=== PATIENT | male | born 1970 | race Caucasian/White ===

== ENCOUNTER 2017-11-06 04:18 | Inpatient (IN) | payer MEDICAID ==
[~2017-11-06] VITALS: Ht 162.6 cm; Wt 63.9 kg
[2017-11-06] VITALS (8 sets, daily range): BP systolic 112–131; BP diastolic 56–65; PULSE 94–108; RESP 16–20; TEMP 98.2–99.7; O2SAT 93–100
[~2017-11-06 04:18] MED LIST: LOTR30T TOP; Z.0.NO CURRENT MEDS
[2017-11-06] MEDS ORDERED: SODIUM CHLOR 0.9% 1000 ML INJ 1,000 ML IV SCH (04:31)
--- NOTE | 2017-11-06 04:42 | PD ---
HPI Chief Complaint: Abdominal Pain Time Seen by Provider: 04:31 Travel History International Travel<30 days: No Contact w/Intl Traveler<30days: No Traveled to known affect area: No History of Present Illness HPI 46-year-old male presents to the emergency department by private transportation the care of family for evaluation of abdominal pain since 1 AM. Patient states pain is severe. Patient states symptoms began around 1 AM with diarrhea and then developed abdominal pain and then vomiting. Patient does not report any chest pain but does say he feels short of breath. Patient denies any chronic medical conditions such as CAD hypertension dyslipidemia diabetes asthma COPD pancreatitis gastritis peptic ulcer disease biliary colic. Patient does admit to tobacco use. Patient takes no medications on a regular basis. Patient does not report hematemesis coffee-ground emesis melena hematochezia. No report of chest pain or referred neck jaw back shoulder or arm pain. No report of fever or chills. Patient is unable to identify exacerbating or alleviating factors. Patient has taken no medications. Patient has taken no medications prior to arrival to the emergency department. Patient describes abdominal pain as colicky, waxing and waning in intensity. [facility] Past Medical History Narrative Medical Negative past medical history negative surgeries; tobacco use; nursing notes reviewed Immunizations Current: Yes Tetanus Vaccination: Unknown Influenza Vaccination: No Social History Alcohol Use: No Tobacco Use: Yes (1/2 PACK A DAY) Substance Use: No Allergies-Medications (Allergen,Severity, Reaction): Coded Allergies: No Known Allergies (Verified Adverse Reaction, Unknown, 11/06/17) Reported Meds & Prescriptions Reported Meds & Active Scripts Active No Active Prescriptions or Reported Medications Review of Systems Except as stated in HPI: all other systems reviewed are Neg General / Constitutional: No: Fever, Chills HENT: No: Congestion Cardiovascular: No: Chest Pain or Discomfort Respiratory: No: Shortness of Breath Gastrointestinal: Positive: Nausea, Vomiting, Diarrhea ("like 22 x's"), Abdominal Pain Genitourinary: No: Dysuria, Decreased Urinary Output Musculoskeletal: Positive: Myalgias, Arthralgias Skin: No Rash Psychiatric: No: Anxiety Hematologic/Lymphatic: No: Lymph Node Enlargement Physical Exam Narrative GENERAL: Well-developed well-nourished male appears mildly anxious in no respiratory distress SKIN: Warm and dry. HEAD: Normocephalic. EYES: No scleral icterus. No injection or drainage. NECK: Supple, trachea midline. No JVD or lymphadenopathy. CARDIOVASCULAR: Regular rate and rhythm without murmurs, gallops, or rubs. RESPIRATORY: Breath sounds equal bilaterally. No accessory muscle use. GASTROINTESTINAL: Abdomen soft, minimal diffuse tenderness to palpation no guarding or rebound, nondistended. MUSCULOSKELETAL: No cyanosis, or edema. BACK: Nontender without obvious deformity. No CVA tenderness. Data Data Last Documented VS Vital Signs Date Time Temp Pulse Resp B/P (MAP) Pulse Ox O2 Delivery O2 Flow Rate FiO2 11/06/17 05:57 16 100 Nasal Cannula 2.00 11/06/17 05:56 100 11/06/17 04:19 98.2 Orders Orders Complete Blood Count With Diff (11/06/17 04:31) Comprehensive Metabolic Panel (11/06/17 04:31) Lipase (11/06/17 04:31) Lactic Acid (11/06/17 04:31) Urinalysis - C+S If Indicated (11/06/17 04:31) Ct Abd/Pel W Iv Contrast(Rout) (11/06/17 04:31) Iv Access Insert/Monitor (11/06/17 04:31) Ecg Monitoring (11/06/17 04:31) Oximetry (11/06/17 04:31) Ondansetron Inj (Zofran Inj) (11/06/17 04:45) Sodium Chlor 0.9% 1000 Ml Inj (Ns 1000 M (11/06/17 04:31) Sodium Chloride 0.9% Flush (Ns Flush) (11/06/17 04:45) Electrocardiogram (11/06/17 04:31) Chest, Single Ap (11/06/17 04:31) Troponin I (11/06/17 04:31) Hydromorphone Pf Inj (Dilaudid Pf Inj) (11/06/17 04:45) Blood Culture (11/06/17 05:16) Piperacil-Tazo 3.375 Gm Premix (Zosyn 3. (11/06/17 05:30) NPO (11/06/17 05:16) Iohexol 350 Inj (Omnipaque 350 Inj) (11/06/17 05:45) Sodium Chlor 0.9% 1000 Ml Inj (Ns 1000 M (11/06/17 06:00) Lactic Acid Sepsis Protocol (11/06/17 06:40) Sodium Chlor 0.9% 1000 Ml Inj (Ns 1000 M (11/06/17 07:00) Admit Order (Ed Use Only) (11/06/17 ) Blueprint Duplicator / Telemetry DION.Q8H (11/06/17 06:57) Activity Oob With Assistance (11/06/17 06:57) Notify Dr: Other (11/06/17 06:57) Admit To Inpatient (11/06/17 ) Vital Signs (Adult) Q4H (11/06/17 06:56) Activity Oob With Assistance (11/06/17 06:56) Diet Clear Liquid (11/06/17 Breakfast) Sodium Chlor 0.9% 1000 Ml Inj (Ns 1000 M (11/06/17 06:56) Sodium Chloride 0.9% Flush (Ns Flush) (11/06/17 07:00) Sodium Chloride 0.9% Flush (Ns Flush) (11/06/17 09:00) Acetaminophen (Tylenol) (11/06/17 07:00) Ondansetron Inj (Zofran Inj) (11/06/17 07:00) Basic Metabolic Panel (Bmp) (11/07/17 06:00) Complete Blood Count With Diff (11/07/17 06:00) Scd Bilateral/Knee High DION.BID (11/06/17 06:56) Naloxone Inj (Narcan Inj) (11/06/17 07:00) Docusate Sodium-Senna (Alma-Colace) (11/06/17 09:00) Magnesium Hydroxide Liq (Milk Of Magnesi (11/06/17 07:00) Sennosides (Senokot) (11/06/17 07:00) Bisacodyl Supp (Dulcolax Supp) (11/06/17 07:00) Lactulose Liq (Lactulose Liq) (11/06/17 07:00) Inpatient Certification (11/06/17 ) Piperacil-Tazo 3.375 Gm Premix (Zosyn 3. (11/06/17 12:00) Stool Wbc (Leukocytes) (11/06/17 06:56) Enteric Path (Stool) (11/06/17 06:56) Stool Ova And Parasite Screen (11/06/17 06:56) C Diff Toxin Pcr (11/06/17 06:56) Labs Laboratory Tests Test 11/06/17 04:40 11/06/17 06:30 11/06/17 06:45 White Blood Count 30.4 TH/MM3 Red Blood Count 5.46 MIL/MM3 Hemoglobin 17.8 GM/DL Hematocrit 53.2 % Mean Corpuscular Volume 97.5 FL Mean Corpuscular Hemoglobin 32.6 PG Mean Corpuscular Hemoglobin Concent 33.4 % Red Cell Distribution Width 13.2 % Platelet Count 323 TH/MM3 Mean Platelet Volume 8.5 FL Neutrophils (%) (Auto) 94.2 % Lymphocytes (%) (Auto) 1.3 % Monocytes (%) (Auto) 4.0 % Eosinophils (%) (Auto) 0.3 % Basophils (%) (Auto) 0.2 % Neutrophils # (Auto) 28.7 TH/MM3 Lymphocytes # (Auto) 0.4 TH/MM3 Monocytes # (Auto) 1.2 TH/MM3 Eosinophils # (Auto) 0.1 TH/MM3 Basophils # (Auto) 0.1 TH/MM3 CBC Comment AUTO DIFF Differential Total Cells Counted 100 Neutrophils % (Manual) 94 % Band Neutrophils % 1 % Lymphocytes % 1 % Monocytes % 2 % Eosinophils % 1 % Basophils % 1 % Neutrophils # (Manual) 28.9 TH/MM3 Differential Comment FINAL DIFF MANUAL Toxic Vacuolation PRESENT Platelet Estimate NORMAL Platelet Morphology Comment NORMAL Red Cell Morphology Comment NORMAL Blood Urea Nitrogen 21 MG/DL Creatinine 1.32 MG/DL Random Glucose 113 MG/DL Total Protein 8.8 GM/DL Albumin 4.8 GM/DL Calcium Level 9.6 MG/DL Alkaline Phosphatase 79 U/L Aspartate Amino Transf (AST/SGOT) 19 U/L Alanine Aminotransferase (ALT/SGPT) 24 U/L Total Bilirubin 0.9 MG/DL Sodium Level 139 MEQ/L Potassium Level 4.6 MEQ/L Chloride Level 105 MEQ/L Carbon Dioxide Level 24.3 MEQ/L Anion Gap 10 MEQ/L Estimat Glomerular Filtration Rate 59 ML/MIN Lactic Acid Level 2.8 mmol/L Troponin I LESS THAN 0.02 NG/ML Lipase 101 U/L Urine Color LIGHT-YELLOW Urine Turbidity CLEAR Urine pH 6.0 Urine Specific [place] 1.042 Urine Protein NEG mg/dL Urine Glucose (UA) NEG mg/dL Urine Ketones NEG mg/dL Urine Occult Blood NEG Urine Nitrite NEG Urine Bilirubin NEG Urine Urobilinogen LESS THAN 2.0 MG/DL Urine Leukocyte Esterase NEG Urine RBC 1 /hpf Urine WBC 1 /hpf Urine Squamous Epithelial Cells <1 /hpf Urine Hyaline Casts 37 /lpf Urine Mucus FEW /lpf Microscopic Urinalysis Comment CULT NOT INDICATED MDM Medical Decision Making Medical Screen Exam Complete: Yes Emergency Medical Condition: Yes Medical Record Reviewed: Yes Interpretation(s) EKG: normal sinus rhythm rate [address] elevation injury pattern or ectopy noted lactic acid: 2.8, elevated cxr: no subdiaphragmatic free air CBC & BMP Diagram 11/06/17 04:40 Total Protein 8.8 H, Albumin 4.8, Calcium Level 9.6, Alkaline Phosphatase 79, Aspartate Amino Transf (AST/SGOT) 19, Alanine Aminotransferase (ALT/SGPT) 24, Total Bilirubin 0.9 Vital Signs Date Time Temp Pulse Resp B/P (MAP) Pulse Ox O2 Delivery O2 Flow Rate FiO2 11/06/17 05:57 16 100 Nasal Cannula 2.00 11/06/17 05:56 100 16 118/64 (82) 98 Room Air 11/06/17 04:19 98.2 108 20 131/59 (83) 98 Room Air Troponin I: less than 0.02, not elevated CONCLUSION: 1. Negative CT abdomen/pelvis with intravenous contrast. Gui Delacruz MD on November 06, 2017 at 6:31 Board Certified Radiologist. This report was verified electronically. Differential Diagnosis Abdominal pain, gastroenteritis, food borne illness, infectious diarrhea, pancreatitis, gastritis, biliary colic, cholecystitis, viscus perforation, diverticulitis, prostatitis, atypical chest pain, ACS Narrative Course IV access obtained patient placed on monitoring analyst with pulse oximetry EKG performed which reveals no acute injury pattern Patient administered Zofran 4 mg IV Dilaudid 0.5 mg IV 1 L of normal saline Pain improved after Zofran and Dilaudid Patient given additional liter of normal saline is remains tachycardic White count is 30,000 with left shift and lactic acid is elevated at 2.8 Chemistries grossly and normal range Urinalysis within normal limits Chest x-ray no lobar infiltrate no free air CT abdomen and pelvis reading per radiologist no acute intra-abdominal or pelvic process Patient continues to complain of lower abdominal pain concerning for possible infectious diarrheal multiple episodes of watery diarrhea versus colitis versus prostatitis versus bacteremia with unclear source at this time. Patient's case discussed with on-call medicine will admit to their service; patient aware plan for admission and is agreeable. Sepsis Criteria SIRS Criteria (2 or more): Heart rate over 90 (108), WBC > 52365, < 4000 or > 10% bands (30,400) Sepsis Criteria (SIRS+source): Infect source susp/known (early colitis) Severe Sepsis (+one): Lactate >2 (2.8) Physician Communication Physician Communication discussed with Dr Mullen --inpatient admission Diagnosis Primary Impression: Sepsis Admitting Information Admitting Physician Requests: Admit Scripts No Active Prescriptions or Reported Meds Nita Wood MD Nov 06, 2017 04:42
[2017-11-06] MEDS ORDERED: HYDROmorphone HCL PF 1 MG/ML VIAL IV PUSH ONE (04:45)
[2017-11-06] MEDS ORDERED: ONDANSETRON HCL 4 MG/2 ML VIAL IVP ONE (04:45)
[2017-11-06] MEDS ORDERED: SODIUM CHLORIDE 0.9% FLUSH 10 ML FLUSH IV FLUSH PRN ×2 (04:45→07:00)
[2017-11-06 04:49] LABS: AUTOMATED NEUTROPHIL # 28.7 TH/MM3 (1.8-7.7); BASOPHIL # 0.1 TH/MM3 (0-0.2); BASOPHIL % 0.2 % (0.0-2.0); EOSINOPHIL # 0.1 TH/MM3 (0-0.4); EOSINOPHIL % 0.3 % (0.0-4.0); HEMATOCRIT 53.2 % (39.0-51.0); LYMPH % 1.3 % (9.0-44.0); LYMPHOCYTE # 0.4 TH/MM3 (1.0-4.8); MEAN CELL VOLUME 97.5 FL (80.0-100.0); MEAN CORPUSCULAR HEMOGLOBIN 32.6 PG (27.0-34.0); MEAN CORPUSCULAR HGB CONC 33.4 % (32.0-36.0); NEUT % 94.2 % (16.0-70.0); PLATELET COUNT 323 TH/MM3 (150-450); RED BLOOD COUNT 5.46 MIL/MM3 (4.50-5.90); RED CELL DISTRIBUTION WIDTH 13.2 % (11.6-17.2); WHITE BLOOD COUNT 30.4 TH/MM3 (4.0-11.0)
[2017-11-06 04:56] LABS: HEMO FLAGS AUTO DIFF
[2017-11-06 05:25] LABS: ALT (GPT) 24 U/L (12-78)
[2017-11-06 05:27] LABS: ANION GAP 10 MEQ/L (5-15); AST (GOT) 19 U/L (15-37); BICARBONATE 24.3 MEQ/L (21.0-32.0); BLOOD UREA NITROGEN 21 MG/DL (7-18); CHLORIDE 105 MEQ/L (98-107); GLOMERULAR FILTRATION RATE 59 ML/MIN (>89); POTASSIUM 4.6 MEQ/L (3.5-5.1); SODIUM (NA) 139 MEQ/L (136-145)
[2017-11-06 05:29] LABS: ALKALINE PHOSPHATASE 79 U/L (45-117); TOTAL BILIRUBIN ADULT 0.9 MG/DL (0.2-1.0)
[2017-11-06] MEDS ORDERED: PIPERACIL-TAZO 3.375 GM PREMIX 50 ML IV ONE (05:30)
--- NOTE | 2017-11-06 05:31 | RADRPT ---
EXAM DATE/TIME: 11/06/2017 04:49 [facility] COMPARISON: No previous studies available for comparison. INDICATIONS : N/V/D with abdominal pain x 1 day MEDICAL HISTORY : None. SURGICAL HISTORY : None. ENCOUNTER: Initial ACUITY: 1 day PAIN SCORE: 8/10 LOCATION: Bilateral chest FINDINGS: Asymmetric appearance to the pulmonary apices with ill-defined area of opacity at the right apex. Th ere is a focal asymmetric opacity in the left suprahilar region which could represent infiltrate or h ypertrophic change related to the 1st rib/manubrial junction. The mid and lower lungs are clear. Juan Jose th hemidiaphragms are well delineated. The heart is normal size. CONCLUSION: Bilateral upper lung ill-defined opacities including right apex and left suprahilar region. Recommen d further characterization with CT thorax to exclude right apical mass and to help differentiate betw een bony hypertrophy and an infiltrate in the left suprahilar region. Gui Delacruz MD on November 06, 2017 at 5:27 Board Certified Radiologist. This report was verified electronically.
[2017-11-06 05:36] LABS: BANDS 1 % (0-6); BASOPHILS 1 % (0-2); EOSINOPHILS 1 % (0-4); NEUTROPHIL # MANUAL DIFF 28.9 TH/MM3 (1.8-7.7); POLYS (SEG NEUTROPHILS) 94 % (16-70); SCAN/DIFF FINAL DIFF MANUAL; WBC DIFF SAMPLE 100
[2017-11-06 05:37] LABS: PLATELET ESTIMATE SMEAR NORMAL (NORMAL); PLATELET MORPHOLOGY NORMAL (NORMAL); TOXIC VACUOLATION PRESENT (NONE SEEN)
[2017-11-06] MEDS ORDERED: IOHEXOL 350 MG/ML 10 ML VIAL (for RAD DIAG) IVCONTRAST ONE (05:45)
[2017-11-06] MEDS ORDERED: SODIUM CHLOR 0.9% 1000 ML INJ 1,000 ML IV ONE ×2 (06:00→07:00)
--- NOTE | 2017-11-06 06:34 | RADRPT ---
EXAM DATE/TIME: 11/06/2017 05:43 [facility] COMPARISON: No previous studies available for comparison. INDICATIONS : Abdominal pain IV CONTRAST: 70 cc Omnipaque 350 (iohexol) IV ORAL CONTRAST: No oral contrast ingested. RADIATION DOSE: 4.88 CTDIvol (mGy) MEDICAL HISTORY : None SURGICAL HISTORY : None. ENCOUNTER: Initial ACUITY: 1 day PAIN SCALE: 10/10 LOCATION: Abdomen TECHNIQUE: Volumetric scanning of the abdomen and pelvis was performed. Using automated exposure control and ad justment of the mA and/or kV according to patient size, radiation dose was kept as low as reasonably achievable to obtain optimal diagnostic quality images. DICOM format image data is available electro nically for review and comparison. FINDINGS: LOWER LUNGS: The visualized lower lungs are clear. LIVER: Homogeneous density without lesion. There is no dilation of the biliary tree. No calcified gallston es. SPLEEN: Normal size without lesion. PANCREAS: Within normal limits. KIDNEYS: Normal in size and shape. There is no mass, stone or hydronephrosis. 12 mm cyst lower pole left kid radha. ADRENAL GLANDS: Within normal limits. VASCULAR: There is no aortic aneurysm. BOWEL/MESENTERY: No dilated loops of small or large bowel. ABDOMINAL WALL: Within normal limits. RETROPERITONEUM: There is no lymphadenopathy. BLADDER: No wall thickening or mass. REPRODUCTIVE: Calcifications in the central zone of the prostate. INGUINAL: There is no lymphadenopathy or hernia. MUSCULOSKELETAL: Within normal limits for patient age. CONCLUSION: 1. Negative CT abdomen/pelvis with intravenous contrast. Gui Delacruz MD on November 06, 2017 at 6:31 Board Certified Radiologist. This report was verified electronically.
[2017-11-06 06:43] LABS: BLOOD, URINE NEG (NEG); COMMENT (UR) CULT NOT INDICATED; CULTURE IF INDICATED CULT NOT INDICATED; GLUCOSE,URINE NEG (NEG); HYALINE CAST, URINE 37 /lpf (RARE); KETONE, URINE NEG (NEG); MUCUS URINE FEW /lpf (OCC); NITRITE,URINE NEG (NEG); SQUAMOUS EPITHELIAL CELL URINE <1 /hpf (0-5); URINE COLOR LIGHT-YELLOW (YELLW/STRAW)
[2017-11-06] MEDS ORDERED: SENNOSIDES 8.6 MG TAB PO PRN (07:00)
[2017-11-06] MEDS ORDERED: MAGNESIUM HYDROXIDE SUSP 30 ML CUP PO PRN (07:00)
[2017-11-06] MEDS ORDERED: ONDANSETRON HCL 4 MG/2 ML VIAL IVP PRN (07:00)
[2017-11-06] MEDS ORDERED: BISACODYL 10 MG SUPP RECTAL PRN (07:00)
[2017-11-06] MEDS ORDERED: LACTULOSE SYRUP 20 GM/30 ML CUP PO PRN (07:00)
[2017-11-06] MEDS ORDERED: ACETAMINOPHEN 325 MG TAB PO PRN (07:00)
[2017-11-06] MEDS ORDERED: NALOXONE HCL 0.4 MG/ML AMP IV PUSH PRN (07:00)
--- NOTE | 2017-11-06 08:26 | HHI.HP ---
[facility] Service [facility] Primary Care Physician No Primary Care Physician Admission Diagnosis sepsis Diagnoses: (1) Sepsis Diagnosis: Principal Travel History International Travel<30 Days: No Contact w/Intl Traveler <30 Da: No Traveled to Known Affected Are: No Sepsis Criteria SIRS Criteria (2 or more): Heart rate over 90, WBC > 64973, < 4000 or > 10% bands Sepsis Criteria (SIRS+source): Infect source susp/known Severe Sepsis (+one): Lactate >2 Criteria Outcome: Meets severe sepsis criteria History of Present Illness patient is a 46 y/o male with no significant past medical history who presented to ER with diarrhea. he says that he woke up around one this morning with severe diarrhea. he had multiple loose bowel movements before coming to ER. he says that later on he had some nausea and started to vomit. he had moderate to severe generalized abdominal pain at the time. he denies any fever, chills, cough. he denies any blood per rectum or hematemesis. he denies any recent antibiotic exposure. Review of Systems Constitutional: DENIES: Fever, Weight loss, Chills, Night Sweats Eyes: DENIES: Blurred vision, Diplopia, Vision loss, Double Vision Ears, nose, mouth, throat: DENIES: Tinnitus, Vertigo, Throat pain, Epistaxis Respiratory: DENIES: Apneas, Cough, Snoring, Wheezing, Hemoptysis, Sputum production, Shortness of breath Cardiovascular: DENIES: Chest pain, Palpitations, Syncope, Dyspnea on Exertion , PND, Lower Extremity Edema, Orthopnea, Claudication Gastrointestinal: COMPLAINS OF: Abdominal pain, Diarrhea, Nausea, Vomiting, DENIES: Black stools, Bloody stools, Constipation, Difficulty Swallowing, Anorexia Genitourinary: DENIES: Urinary frequency, Urgency, Hematuria, Dysuria Musculoskeletal: DENIES: Joint pain, Muscle aches, Stiffness, Joint Swelling Integumentary: DENIES: Rash Neurologic: DENIES: Abnormal gait, Headache, Localized weakness, Paresthesias, Seizures, Speech Problems, Tremor, Poor Balance Psychiatric: DENIES: Anxiety, Confusion, Mood changes, Depression, Hallucinations, Agitation, Suicidal Ideation, Homicidal Ideation, Delusions Past Family Social History Past Medical History not significant. Past Surgical History none reported. Reported Medications none reported. Allergies: Coded Allergies: mushroom (Verified Allergy, Mild, 11/06/17) Active Ordered Medications Current Medications Ondansetron HCl (Zofran Inj) 4 mg ONCE ONCE IVP Last administered on 04:52; Start 11/06/17 at 04:45; Stop 11/06/17 at 04:46; Status DC Sodium Chloride 1,000 ml @ 125 mls/hr Q8H IV Last administered on 11/06/17 04:50; Start 11/06/17 at 04:31; Stop 11/06/17 at 07:29; Status DC Sodium Chloride (NS Flush) 2 ml UNSCH PRN IV FLUSH FLUSH AFTER USING IV ACCESS ; Start 11/06/17 at 04:45; Stop 11/06/17 at 07:32; Status DC Hydromorphone HCl (Dilaudid Pf Inj) 0.5 mg ONCE ONCE IV PUSH Last administered on 11/06/17 04:51; Start 11/06/17 at 04:45; Stop 11/06/17 at 04 :46; Status DC Piperacillin Sod/ Tazobactam Sod 50 ml @ 100 mls/hr ONCE ONCE IV Last administered on 11/06/17 05:29; Start 11/06/17 at 05:30; Stop 11/06/17 at 05 :59; Status DC Iohexol (Omnipaque 350 Inj) 70 ml STK-MED ONCE IVCONTRAST Last administered on 11/06/17 05:45; Start 11/06/17 at 05:45; Stop 11/06/17 at 05:46; Status DC Sodium Chloride 1,000 ml @ 999 mls/hr BOLUS ONCE IV Last administered on 05:56; Start 11/06/17 at 06:00; Stop 11/06/17 at 07:00; Status DC Sodium Chloride 1,000 ml @ 999 mls/hr BOLUS ONCE IV Last administered on 07:02; Start 11/06/17 at 07:00; Stop 11/06/17 at 08:00; Status DC Sodium Chloride 1,000 ml @ 100 mls/hr Q10H IV ; Start 11/06/17 at 08:00 Sodium Chloride (NS Flush) 2 ml UNSCH PRN IV FLUSH FLUSH AFTER USING IV ACCESS ; Start 11/06/17 at 07:00 Sodium Chloride (NS Flush) 2 ml BID IV FLUSH ; Start 11/06/17 at 09:00 Acetaminophen (Tylenol) 650 mg Q4H PRN PO TEMP > 100.4; Start 11/06/17 at 07: 00 Ondansetron HCl (Zofran Inj) 4 mg Q6H PRN IVP NAUSEA OR VOMITING; Start at 07:00 Naloxone HCl (Narcan Inj) 0.4 mg UNSCH PRN IV PUSH SEE LABEL COMMENTS; Start 11/06/17 at 07:00 Senna/Docusate Sodium (Alma-Colace) 1 tab BID PO ; Start 11/06/17 at 09:00 Magnesium Hydroxide (Milk Of Magnesia Liq) 30 ml Q12H PRN PO Mild constipation ; Start 11/06/17 at 07:00 Sennosides (Senokot) 17.2 mg Q12H PRN PO Moderate constipation; Start at 07:00 Bisacodyl (Dulcolax Supp) 10 mg DAILY PRN RECTAL SEVERE CONSITIPATION; Start 11/06/17 at 07:00 Lactulose (Lactulose Liq) 30 ml DAILY PRN PO SEVERE CONSITIPATION; Start 11/06 at 07:00 Piperacillin Sod/ Tazobactam Sod 50 ml @ 100 mls/hr Q6H IV ; Start 11/06/17 at 12:00 Family History not significant. Social History smokes a pack a day. doesn't drink. Physical Exam Vital Signs Vital Signs Date Time Temp Pulse Resp B/P (MAP) Pulse Ox O2 Delivery O2 Flow Rate FiO2 11/06/17 07:48 11/06/17 07:00 99 17 120/65 (83) 97 Room Air 11/06/17 05:57 16 100 Nasal Cannula 2.00 11/06/17 05:56 100 16 118/64 (82) 98 Room Air 11/06/17 04:19 98.2 108 20 131/59 (83) 98 Room Air Physical Exam GENERAL: This is a well-nourished, well-developed patient, in no apparent distress. SKIN: No rashes, ecchymoses or lesions. Cool and dry. HEAD: Atraumatic. Normocephalic. No temporal or scalp tenderness. EYES: Pupils equal round and reactive. Extraocular motions intact. No scleral icterus. No injection or drainage. ENT: Nose without bleeding, purulent drainage or septal hematoma. Throat without erythema, tonsillar hypertrophy or exudate. Uvula midline. Airway patent. NECK: Trachea midline. No JVD or lymphadenopathy. Supple, nontender, no meningeal signs. CARDIOVASCULAR: Regular rate and rhythm without murmurs, gallops, or rubs. RESPIRATORY: Clear to auscultation. Breath sounds equal bilaterally. No wheezes , rales, or rhonchi. GASTROINTESTINAL: Abdomen soft, non-tender, nondistended. No hepato-splenomegaly , or palpable masses. No guarding. MUSCULOSKELETAL: Extremities without clubbing, cyanosis, or edema. No joint tenderness, effusion, or edema noted. No calf tenderness. Negative Homans sign bilaterally. NEUROLOGICAL: Awake and alert. Cranial nerves II through XII intact. Motor and sensory grossly within normal limits. Five out of 5 muscle strength in all muscle groups. Normal speech. Laboratory Laboratory Tests Test 11/06/17 04:40 11/06/17 06:30 11/06/17 06:45 White Blood Count 30.4 Red Blood Count 5.46 Hemoglobin 17.8 Hematocrit 53.2 Mean Corpuscular Volume 97.5 Mean Corpuscular Hemoglobin 32.6 Mean Corpuscular Hemoglobin Concent 33.4 Red Cell Distribution Width 13.2 Platelet Count 323 Mean Platelet Volume 8.5 Neutrophils (%) (Auto) 94.2 Lymphocytes (%) (Auto) 1.3 Monocytes (%) (Auto) 4.0 Eosinophils (%) (Auto) 0.3 Basophils (%) (Auto) 0.2 Neutrophils # (Auto) 28.7 Lymphocytes # (Auto) 0.4 Monocytes # (Auto) 1.2 Eosinophils # (Auto) 0.1 Basophils # (Auto) 0.1 CBC Comment AUTO DIFF Differential Total Cells Counted 100 Neutrophils % (Manual) 94 Band Neutrophils % 1 Lymphocytes % 1 Monocytes % 2 Eosinophils % 1 Basophils % 1 Neutrophils # (Manual) 28.9 Differential Comment FINAL DIFF MANUAL Toxic Vacuolation PRESENT Platelet Estimate NORMAL Platelet Morphology Comment NORMAL Red Cell Morphology Comment NORMAL Blood Urea Nitrogen 21 Creatinine 1.32 Random Glucose 113 Total Protein 8.8 Albumin 4.8 Calcium Level 9.6 Alkaline Phosphatase 79 Aspartate Amino Transf (AST/SGOT) 19 Alanine Aminotransferase (ALT/SGPT) 24 Total Bilirubin 0.9 Sodium Level 139 Potassium Level 4.6 Chloride Level 105 Carbon Dioxide Level 24.3 Anion Gap 10 Estimat Glomerular Filtration Rate 59 Lactic Acid Level 2.8 1.2 Troponin I LESS THAN 0.02 Lipase 101 Urine Color LIGHT-YELLOW Urine Turbidity CLEAR Urine pH 6.0 Urine Specific [place] 1.042 Urine Protein NEG Urine Glucose (UA) NEG Urine Ketones NEG Urine Occult Blood NEG Urine Nitrite NEG Urine Bilirubin NEG Urine Urobilinogen LESS THAN 2.0 Urine Leukocyte Esterase NEG Urine RBC 1 Urine WBC 1 Urine Squamous Epithelial Cells <1 Urine Hyaline Casts 37 Urine Mucus FEW Microscopic Urinalysis Comment CULT NOT INDICATED Date/Time Source Procedure Growth Status 11/06/17 05:20 Blood Peripheral Aerobic Blood Culture Pending Received 11/06/17 05:20 Blood Peripheral Anaerobic Blood Culture Pending Received Result Diagram: 11/06/1743911/06/17439 Imaging Last Impressions Chest X-Ray 11/06/17430 Signed Impressions: Service Date/Time: Monday, November 06, 2017 04:49 - CONCLUSION: Bilateral upper lung ill-defined opacities including right apex and left suprahilar region. Recommend further characterization with CT thorax to exclude right apical mass and to help differentiate between bony hypertrophy and an infiltrate in the left suprahilar region. Gui Delacruz MD Abdomen/Pelvis CT 11/06/17430 Signed Impressions: Service Date/Time: Monday, November 06, 2017 05:43 - CONCLUSION: 1. Negative CT abdomen/pelvis with intravenous contrast. Gui Delacruz MD EKG; sinus rhythm with no acute ST-T changes. Caprini VTE Risk Assessment Caprini VTE Risk Assessment: Mod/High Risk (score >= 2) Caprini Risk Assessment Model Point Value = 1 Point Value = 2 Point Value = 3 Point Value = 5 Age 41-60 Minor surgery BMI > 25 kg/m2 Swollen legs Varicose veins or History of unexplained or recurrent spontaneous Oral contraceptives or hormone replacement Sepsis (< 1 month) Serious lung disease, including pneumonia (< 1 month) Abnormal pulmonary function Acute myocardial infarction Congestive heart failure (< 1 month) History of inflammatory bowel disease Medical patient at bed rest Age 61-74 Arthroscopic surgery Major open surgery (> 45 min) Laparoscopic surgery (> 45 min) Malignancy Confined to bed (> 72 hours) Immobilizing plaster cast Central venous access Age >= 75 History of VTE Family history of VTE Factor V Leiden Prothrombin [id number] Lupus anticoagulant Anticardiolipin antibodies Elevated serum homocysteine Heparin-induced thrombocytopenia Other congenital or acquired thrombophilia Stroke (< 1 month) Elective arthroplasty Hip, pelvis, or leg fracture Acute spinal cord injury (< 1 month) Prophylaxis Regimen Total Risk Factor Score Risk Level Prophylaxis Regimen 0-1 Low Early ambulation 2 Moderate Order ONE of the following: *Sequential Compression Device (SCD) *Heparin 5000 units SQ BID 3-4 Higher Order ONE of the following medications: *Heparin 5000 units SQ TID *Enoxaparin/Lovenox 40 mg SQ daily (WT < 150 kg, CrCl > 30 mL/min) *Enoxaparin/Lovenox 30 mg SQ daily (WT < 150 kg, CrCl > 10-29 mL/min) *Enoxaparin/Lovenox 30 mg SQ BID (WT < 150 kg, CrCl > 30 mL/min) AND/OR *Sequential Compression Device (SCD) 5 or more Highest Order ONE of the following medications: *Heparin 5000 units SQ TID (Preferred with Epidurals) *Enoxaparin/Lovenox 40 mg SQ daily (WT < 150 kg, CrCl > 30 mL/min) *Enoxaparin/Lovenox 30 mg SQ daily (WT < 150 kg, CrCl > 10-29 mL/min) *Enoxaparin/Lovenox 30 mg SQ BID (WT < 150 kg, CrCl > 30 mL/min) AND *Sequential Compression Device (SCD) Assessment and Plan Assessment and Plan A/P - severe sepsis- suspect colitis ( tachycardia, leukocytosis and elevated lactic acid) continue with IV Zosyn- follow the cultures- continue with supportive care with IV fluid- antiemetics check the stool for C-diff/ G/C- CBC in am- will monitor temps. -questionable lung infiltrate on CXR- will check CT chest -acute kidney injury; continue IV fluid- repeat BMP tomorrow. -DVT prophylaxis with subq Heparin. Discussed Condition With the patient. Physician Certification 2 Midnight Certification Type: Admission for Inpatient Services Order for Inpatient Services The services are ordered in accordance with Medicare regulations or non- Medicare payer requirements, as applicable. In the case of services not specified as inpatient-only, they are appropriately provided as inpatient services in accordance with the 2-midnight benchmark. Estimated LOS (days): 2 days is the estimated time the patient will need to remain in the hospital, assuming treatment plan goals are met and no additional complications. Post-Hospital Plan: Home Rhiannon Medina MD Nov 06, 2017 08:26
[2017-11-06] MEDS: SODIUM CHLOR 0.9% 1000 ML INJ 1,000 ML IV SCH ×3 (10:31→23:10)
[2017-11-06] MEDS: HEPARIN SODIUM - SQ 10,000 UNITS/ML VIAL SQ SCH ×2 (10:32→21:00)
[2017-11-06] MEDS: SODIUM CHLORIDE 0.9% FLUSH 10 ML FLUSH IV FLUSH SCH ×2 (10:32→21:00)
[2017-11-06] MEDS: DOCUSATE SODIUM 50 MG/SENNA 8.6 MG TAB PO SCH ×2 (10:33→21:00)
[2017-11-06] MEDS: PIPERACIL-TAZO 3.375 GM PREMIX 50 ML IV SCH ×3 (11:44→23:09)
--- NOTE | 2017-11-06 16:45 | RADRPT ---
EXAM DATE/TIME: 11/06/2017 14:52 [place] COMPARISON: No previous studies available for comparison. INDICATIONS : Left suprahilar opacity. RADIATION DOSE: 3.52 CTDIvol (mGy) MEDICAL HISTORY : None SURGICAL HISTORY : None. ENCOUNTER: Initial ACUITY: 1 day PAIN SCALE: 0/10 LOCATION: chest TECHNIQUE: Volumetric scanning of the chest was performed. Using automated exposure control and adjustment of t he mA and/or kV according to patient size, radiation dose was kept as low as reasonably achievable to obtain optimal diagnostic quality images. DICOM format image data is available electronically for r eview and comparison. Follow-up recommendations for detected pulmonary nodules are based at a minimum on nodule size and pa tient risk factors according to Fleischner Society Guidelines. FINDINGS: LUNGS: Mild dependent bibasilar atelectatic changes. Otherwise clear PLEURAE: There is no pleural thickening or pleural effusion. MEDIASTINUM: The heart and great vessels demonstrate no acute abnormality. There is no mediastinal or hilar lymph adenopathy. AXILLAE: Within normal limits. No lymphadenopathy. MUSCULOSKELETAL: Within normal limits for patient age. MISCELLANEOUS: The visualized upper abdominal organs demonstrate no acute abnormality. CONCLUSION: Mild dependent atelectatic changes. Otherwise clear. Mumtaz Schneider MD on November 06, 2017 at 16:32 Board Certified Radiologist. This report was verified electronically.
--- NOTE | 2017-11-06 17:40 | EKG ---
Date Performed: 11/06/2017 Time Performed: 04:35:34 PTAGE: 46 years EKG: Sinus rhythm MODERATE VOLTAGE CRITERIA FOR LVH, CONSIDER NORMAL VARIANT NONSPECIFIC T-WAVE ABNORMALITY BORDERLINE ECG NO PREVIOUS TRACING DOCTOR: Martin Frey Interpretating Date/Time 11/06/2017 17:39:19
[2017-11-06 20:07] LABS: C. DIFF EPI 027 PRESUMPTIVE NEGATIVE (NEGATIVE)
[2017-11-07] VITALS (8 sets, daily range): BP systolic 107–138; BP diastolic 58–66; PULSE 73–97; RESP 18–20; TEMP 97.1–98.8; O2SAT 96–97
[2017-11-07] MEDS: PIPERACIL-TAZO 3.375 GM PREMIX 50 ML IV SCH ×2 (05:53→12:19)
[2017-11-07 08:37] LABS: AUTOMATED NEUTROPHIL # 5.2 TH/MM3 (1.8-7.7); BASOPHIL % 0.3 % (0.0-2.0); EOSINOPHIL # 0.4 TH/MM3 (0-0.4); EOSINOPHIL % 4.6 % (0.0-4.0); HEMATOCRIT 38.8 % (39.0-51.0); HEMO FLAGS DIFF FINAL; LYMPH % 16.9 % (9.0-44.0); LYMPHOCYTE # 1.3 TH/MM3 (1.0-4.8); MEAN CELL VOLUME 96.9 FL (80.0-100.0); MEAN CORPUSCULAR HEMOGLOBIN 33.1 PG (27.0-34.0); MEAN CORPUSCULAR HGB CONC 34.1 % (32.0-36.0); NEUT % 68.2 % (16.0-70.0); PLATELET COUNT 236 TH/MM3 (150-450); RED BLOOD COUNT 4.01 MIL/MM3 (4.50-5.90); RED CELL DISTRIBUTION WIDTH 12.7 % (11.6-17.2); WHITE BLOOD COUNT 7.6 TH/MM3 (4.0-11.0)
[2017-11-07] MEDS: DOCUSATE SODIUM 50 MG/SENNA 8.6 MG TAB PO SCH (09:00)
[2017-11-07 09:01] LABS: BICARBONATE 23.2 MEQ/L (21.0-32.0); POTASSIUM 3.8 MEQ/L (3.5-5.1)
[2017-11-07] MEDS: HEPARIN SODIUM - SQ 10,000 UNITS/ML VIAL SQ SCH (09:01)
[2017-11-07] MEDS: SODIUM CHLORIDE 0.9% FLUSH 10 ML FLUSH IV FLUSH SCH (09:04)
[2017-11-07] MEDS: SODIUM CHLOR 0.9% 1000 ML INJ 1,000 ML IV SCH (09:44)
--- NOTE | 2017-11-07 09:49 | HHI.PR ---
Subjective Remarks in no acute distress. no fever. no abdominal pain, nausea or vomiting. had one loose BM last night. hoping that he could go home today. d/w the RN and no acute issues over night. Objective Vitals Vital Signs Date Time Temp Pulse Resp B/P (MAP) Pulse Ox O2 Delivery O2 Flow Rate FiO2 11/07/17 04:27 89 11/07/17 04:00 97.1 82 20 107/59 (75) 96 11/07/17 00:00 98.6 97 20 113/58 (76) 97 11/06/17 20:30 98.7 100 17 117/56 (76) 98 11/06/17 16:30 99.7 94 18 116/56 (76) 93 11/06/17 12:35 98.7 98 18 112/59 (76) 97 I/O 11/06/17 11/06/17 11/06/17 11/07/17 11/07/17 11/07/17 07:00 15:00 23:00 07:00 15:00 23:00 Intake Total 604 ml 240 ml 1050 ml Balance 604 ml 240 ml 1050 ml Intake Oral 240 ml IV Total 604 ml 1050 ml # Voids 2 1 # Bowel Movements 0 Result Diagram: 11/07/17 0755 11/07/17 0755 Imaging Last Impressions Chest X-Ray 11/06/17430 Signed Impressions: Service Date/Time: Monday, November 06, 2017 04:49 - CONCLUSION: Bilateral upper lung ill-defined opacities including right apex and left suprahilar region. Recommend further characterization with CT thorax to exclude right apical mass and to help differentiate between bony hypertrophy and an infiltrate in the left suprahilar region. Gui Delacruz MD Abdomen/Pelvis CT 11/06/17 0431 Signed Impressions: Service Date/Time: Monday, November 06, 2017 05:43 - CONCLUSION: 1. Negative CT abdomen/pelvis with intravenous contrast. Gui Delacruz MD Chest CT 11/06/17 0000 Signed Impressions: Service Date/Time: Monday, November 06, 2017 14:52 - CONCLUSION: Mild dependent atelectatic changes. Otherwise clear. Mumtaz Schneider MD Objective Remarks GENERAL: This is a well-nourished, well-developed patient, in no apparent distress. CARDIOVASCULAR: Regular rate and regular rhythm without murmurs, gallops, or rubs. RESPIRATORY: Clear to auscultation. Breath sounds equal bilaterally. No wheezes , rales, or rhonchi. GASTROINTESTINAL: Abdomen soft, non-tender, nondistended. Normal, active bowel sounds MUSCULOSKELETAL: Extremities without clubbing, cyanosis, or edema. NEURO: Alert & Oriented x4 to person, place, time, situation. Moves all ext x4 Medications and IVs Current Medications Ondansetron HCl (Zofran Inj) 4 mg ONCE ONCE IVP Last administered on 04:52; Start 11/06/17 at 04:45; Stop 11/06/17 at 04:46; Status DC Sodium Chloride 1,000 ml @ 125 mls/hr Q8H IV Last administered on 11/06/17 04:50; Start 11/06/17 at 04:31; Stop 11/06/17 at 07:29; Status DC Sodium Chloride (NS Flush) 2 ml UNSCH PRN IV FLUSH FLUSH AFTER USING IV ACCESS ; Start 11/06/17 at 04:45; Stop 11/06/17 at 07:32; Status DC Hydromorphone HCl (Dilaudid Pf Inj) 0.5 mg ONCE ONCE IV PUSH Last administered on 11/06/17 04:51; Start 11/06/17 at 04:45; Stop 11/06/17 at 04 :46; Status DC Piperacillin Sod/ Tazobactam Sod 50 ml @ 100 mls/hr ONCE ONCE IV Last administered on 11/06/17 05:29; Start 11/06/17 at 05:30; Stop 11/06/17 at 05 :59; Status DC Iohexol (Omnipaque 350 Inj) 70 ml STK-MED ONCE IVCONTRAST Last administered on 11/06/17 05:45; Start 11/06/17 at 05:45; Stop 11/06/17 at 05:46; Status DC Sodium Chloride 1,000 ml @ 999 mls/hr BOLUS ONCE IV Last administered on 05:56; Start 11/06/17 at 06:00; Stop 11/06/17 at 07:00; Status DC Sodium Chloride 1,000 ml @ 999 mls/hr BOLUS ONCE IV Last administered on 07:02; Start 11/06/17 at 07:00; Stop 11/06/17 at 08:00; Status DC Sodium Chloride 1,000 ml @ 100 mls/hr Q10H IV Last administered on 11/06/17 23:10; Start 11/06/17 at 08:00 Sodium Chloride (NS Flush) 2 ml UNSCH PRN IV FLUSH FLUSH AFTER USING IV ACCESS ; Start 11/06/17 at 07:00 Sodium Chloride (NS Flush) 2 ml BID IV FLUSH Last administered on 11/07/17 09 :04; Start 11/06/17 at 09:00 Acetaminophen (Tylenol) 650 mg Q4H PRN PO TEMP > 100.4 Last administered on 19:44; Start 11/06/17 at 07:00 Ondansetron HCl (Zofran Inj) 4 mg Q6H PRN IVP NAUSEA OR VOMITING; Start at 07:00 Naloxone HCl (Narcan Inj) 0.4 mg UNSCH PRN IV PUSH SEE LABEL COMMENTS; Start 11/06/17 at 07:00 Senna/Docusate Sodium (Alma-Colace) 1 tab BID PO Last administered on 09:00; Start 11/06/17 at 09:00 Magnesium Hydroxide (Milk Of Magnesia Liq) 30 ml Q12H PRN PO Mild constipation ; Start 11/06/17 at 07:00 Sennosides (Senokot) 17.2 mg Q12H PRN PO Moderate constipation; Start at 07:00 Bisacodyl (Dulcolax Supp) 10 mg DAILY PRN RECTAL SEVERE CONSITIPATION; Start 11/06/17 at 07:00 Lactulose (Lactulose Liq) 30 ml DAILY PRN PO SEVERE CONSITIPATION; Start 11/06 at 07:00 Piperacillin Sod/ Tazobactam Sod 50 ml @ 100 mls/hr Q6H IV Last administered on 11/07/17 05:53; Start 11/06/17 at 12:00 Heparin Sodium (Porcine) (Heparin Inj) 5,000 units Q12HR SQ Last administered on 11/07/17 09:01; Start 11/06/17 at 09:00 A/P Assessment and Plan A/P - severe sepsis- suspect colitis ( tachycardia, leukocytosis and elevated lactic acid)- resolved. continue with IV Zosyn- will switch to po antibiotics upon discharge- blood cultures negative so far. continue with supportive care with IV fluid- antiemetics stool negative for c-diff. -questionable lung infiltrate on CXR- CT chest with no acute abnormality. -acute kidney injury; resolved. -DVT prophylaxis with subq Heparin. Discharge Planning dc home this evening if tolerates the diet. f/u; pcp. see med list. d/w the patient and RN. Rhiannon Medina MD Nov 07, 2017 09:49
[2017-11-07] MEDS ORDERED: CIPR-9 PO (09:52)
[2017-11-07] MEDS ORDERED: METR-1 PO (09:52)
--- NOTE | 2017-11-07 14:18 | HHI.DS ---
Discharge Summary Admission Date Nov 06, 2017 at 06:59 Discharge Date: Nov 07, 2017 Admitting Diagnosis sepsis (1) Sepsis ICD Code: A41.9 - Sepsis, unspecified organism Diagnosis: Principal Status: Acute Procedures none Brief History - From Admission patient is a 46 y/o male with no significant past medical history who presented to ER with diarrhea. he says that he woke up around one this morning with severe diarrhea. he had multiple loose bowel movements before coming to ER. he says that later on he had some nausea and started to vomit. he had moderate to severe generalized abdominal pain at the time. he denies any fever, chills, cough. he denies any blood per rectum or hematemesis. he denies any recent antibiotic exposure. CBC/BMP: 11/07/17 0755 11/07/17 0755 Significant Findings Laboratory Tests Test 11/06/17 04:40 11/06/17 06:30 11/06/17 06:45 11/06/17 17:45 White Blood Count 30.4 TH/MM3 (4.0-11.0) Hemoglobin 17.8 GM/DL (13.0-17.0) Hematocrit 53.2 % (39.0-51.0) Neutrophils (%) (Auto) 94.2 % (16.0-70.0) Lymphocytes (%) (Auto) 1.3 % (9.0-44.0) Neutrophils # (Auto) 28.7 TH/MM3 (1.8-7.7) Lymphocytes # (Auto) 0.4 TH/MM3 (1.0-4.8) Monocytes # (Auto) 1.2 TH/MM3 (0-0.9) Neutrophils % (Manual) 94 % (16-70) Lymphocytes % 1 % (9-44) Neutrophils # (Manual) 28.9 TH/MM3 (1.8-7.7) Toxic Vacuolation PRESENT (NONE SEEN) Blood Urea Nitrogen 21 MG/DL (7-18) Creatinine 1.32 MG/DL (0.60-1.30) Random Glucose 113 MG/DL (74-106) Total Protein 8.8 GM/DL (6.4-8.2) Estimat Glomerular Filtration Rate 59 ML/MIN (>89) Lactic Acid Level 2.8 mmol/L (0.4-2.0) Troponin I LESS THAN 0.02 NG/ML Urine Specific [place] 1.042 (1.002-1.035) Urine Mucus FEW /lpf (OCC) Test 11/07/17 07:55 Red Blood Count 4.01 MIL/MM3 (4.50-5.90) Hematocrit 38.8 % (39.0-51.0) Monocytes (%) (Auto) 10.0 % (0.0-8.0) Eosinophils (%) (Auto) 4.6 % (0.0-4.0) Calcium Level 7.7 MG/DL (8.5-10.1) Chloride Level 111 MEQ/L (98-107) Imaging Last Impressions Chest X-Ray 11/06/17430 Signed Impressions: Service Date/Time: Monday, November 06, 2017 04:49 - CONCLUSION: Bilateral upper lung ill-defined opacities including right apex and left suprahilar region. Recommend further characterization with CT thorax to exclude right apical mass and to help differentiate between bony hypertrophy and an infiltrate in the left suprahilar region. Gui Delacruz MD Abdomen/Pelvis CT 11/06/17430 Signed Impressions: Service Date/Time: Monday, November 06, 2017 05:43 - CONCLUSION: 1. Negative CT abdomen/pelvis with intravenous contrast. Gui Delacruz MD Chest CT 11/06/17 0000 Signed Impressions: Service Date/Time: Monday, November 06, 2017 14:52 - CONCLUSION: Mild dependent atelectatic changes. Otherwise clear. Mumtaz Schneider MD PE at Discharge GENERAL: This is a well-nourished, well-developed patient, in no apparent distress. CARDIOVASCULAR: Regular rate and regular rhythm without murmurs, gallops, or rubs. RESPIRATORY: Clear to auscultation. Breath sounds equal bilaterally. No wheezes , rales, or rhonchi. GASTROINTESTINAL: Abdomen soft, non-tender, nondistended. Normal, active bowel sounds MUSCULOSKELETAL: Extremities without clubbing, cyanosis, or edema. NEURO: Alert & Oriented x4 to person, place, time, situation. Moves all ext x4 Hospital Course patient was admitted with possible early colitis. he was started on IV antibiotic. his condition improved. pain subsided and tolerated the diet. he will be discharged home on oral antibiotics and f/u with his PCP. Pt Condition on Discharge: Stable Discharge Disposition: Discharge Home Discharge Time: <= 30 minutes Discharge Instructions DIET: Follow Instructions for: As Tolerated, No Restrictions Activities you can perform: Regular-No Restrictions Follow up Referrals: PCP Follow-up PCP Follow-up New Medications: Ciprofloxacin (Cipro) 500 Mg Tab 500 MG PO BID for Infection for 5 Days, #10 TAB 0 Refills Metronidazole (Flagyl) 500 Mg Tab 500 MG PO TID for Infection for 5 Days, TAB 0 Refills Rhiannon Medina MD Nov 07, 2017 14:18
== END 2017-11-07 18:21 | disposition home or self-care (01) | DRG 872 ==
LOC: NEPC 04:18 → NEDA 06:59 → N05B 08:01
PROVIDERS: ADMIT Internal Medicine; ATTEND Internal Medicine
DX: A41.9 Sepsis, unspecified organism (principal); N17.9 Acute kidney failure, unspecified; R65.20 Severe sepsis without septic shock; K52.9 Noninfective gastroenteritis and colitis, unspecified; F17.210 Nicotine dependence, cigarettes, uncomplicated
CPT/HCPCS: 71010; 71250; 74177; 80048; 80053; 81001; 83605; 83690; 84484; 85007; 85025; 85027; 87040; 87205; 87328; 87329; 87493; 87506; 93005; J1170; J1644; J2405; J2543; J7030; Q9967